=== PATIENT | male | born 1955 | race Caucasian/White ===

== ENCOUNTER 2019-05-11 11:03 | Emergency (ER) | payer OTHER ==
--- NOTE | 2019-05-11 11:55 | RAD ---
EXAM: Portable chest PROVIDED CLINICAL HISTORY: Syncope COMPARISON: None FINDINGS: Cardiac and mediastinal silhouette is within normal limits. No focal consolidation, pleural fluid or pneumothorax evident. IMPRESSION: No evidence for an acute cardiopulmonary process.
[2019-05-11 11:59] LABS: #Eosinphils 0.1 thou/uL (0.0-0.7); #Lymphocytes 0.8 thou/uL (1.20-3.40); #Monocytes 0.9 thou/uL (0.11-0.59); #Neutrophils 7.1 thou/uL (1.40-6.50); %Basophils 0.4 % (0.0-1.0); %Eosinophils 0.9 % (0.0-10.0); %Lymphocytes 8.9 % (21.0-51.0); %Neutrophils 79.9 % (42.0-75.0); Hemoglobin 15.5 g/dL (14.0-18.0); Mean Corpuscular HGB CONC 32.8 g/dL (32.0-36.0); Mean Corpuscular Hemoglobin 28.3 pg (27.0-31.0); Mean Corpuscular Volume 86.2 fL (78.0-98.0); Mean Platelet Volume 9.5 fL (7.4-10.4); Platelet Count 197 thou/uL (130-400); RBC Distribution Width 12.3 % (11.5-14.5); Red Blood Cell (RBC) Count 5.48 mill/uL (4.70-6.10); White Blood Cell (WBC) Count 8.9 thou/uL (4.8-10.8)
[2019-05-11 12:18] LABS: ALT (SGPT) 22 U/L (8-55); AST (SGOT) 15 U/L (5-34); Albumin 4.1 g/dL (3.4-4.8); Alkaline Phosphatase 83 U/L (40-150); Anion Gap 12 mmol/L (10-20); BUN (Urea Nitrogen) 12 mg/dL (8.4-25.7); Bilirubin, Total 0.8 mg/dL (0.2-1.2); Calc. Creatinine Clearance 0 mL/min (70-130); Calcium 9.1 mg/dL (7.8-10.44); Carbon Dioxide 23 mmol/L (23-31); Chloride 106 mmol/L (98-107); Estimated GFR-MDRD 75; Globulin 3.4 g/dL (2.4-3.5); Glucose 136 mg/dL (80-115); Potassium 4.3 mmol/L (3.5-5.1); Protein, Total 7.5 g/dL (5.8-8.1); Sodium 137 mmol/L (136-145)
--- NOTE | 2019-05-11 12:30 | CT ---
CT BRAIN WITHOUT CONTRAST: HISTORY: Syncope. COMPARISON: There are no previous exams for comparison. FINDINGS: There are irregular hypodensities in the right temporoparietal lobe, with associated coarse calcifica tions. There is minimal midline shift to the left. Ventricular size is appropriate. The basilar ci sterns are patent. No evidence of hemorrhage or abnormal extraaxial fluid collections seen. The bon y calvarium is intact. There is no mucosal disease in the paranasal sinuses. IMPRESSION: Findings suspicious for right-sided cerebral hemispheric mass. Further evaluation with contrast enhanced MRI is recommended. POS: [facility]
[2019-05-11] MEDS ORDERED: Iopamidol 370 76% 50 ML VIAL FS ONE (13:39)
[2019-05-11] MEDS ORDERED: ISOVUE-370 76%-LOCM 1 ML ONE (13:39)
[2019-05-11] MEDS ORDERED: Gadobenate Dimeglumine 529 MG/1 ML (20ML VIAL) ONE (13:42)
--- NOTE | 2019-05-11 14:26 | MRI ---
MRI Brain W WO Con: 05/11/2019 12:40 PM CLINICAL HISTORY: Syncope, CT abnormality, follow-up. COMPARISON: None. FINDINGS: Extra axial spaces: There is effacement of right cerebral hemispheric sulci within the right temporop arietal region. Acute infarction: None. Ventricular system: There is mild effacement of the right lateral ventricle as result of mass effect from the right cerebral hemisphere. Basal cisterns: There is effacement of the right ambient cistern. Cerebral parenchyma: Diffuse abnormal signal abnormality of the right cerebral hemisphere centered wi thin the right temporal lobe and extending to the inferior right frontal, and the right parietal lobes as well as medially to involve the deep hernandez nuclei including the lentiform nucleus and thalamu s. Encroachment upon the corpus callosum is also seen.. Associated susceptibility foci are present. Midline shift: Leftward shift subfalcine herniation, at level of septum pellucidum measures 7 mm. Cerebellum: Normal. Brainstem: Normal. Paranasal sinuses:Scattered mucosal thickening. Intraaxial Enhancement: No mass-producing intra-axial enhancement. There is interspersed vascular rel ated enhancement within the large region of signal alteration and edema of the right cerebral hemisphere. Associated vascular flow voids are present. IMPRESSION:Large, infiltrating mass of the right cerebral hemisphere without significant associated e nhancement. 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 Recommend neurosurgical consultation. Transcribed Date/Time: 05/11/2019 4:54 PM
[2019-05-11] MEDS ORDERED: Ketorolac Tromethamine 30 MG/ML VIAL ONE (14:42)
[2019-05-11] MEDS ORDERED: Dexamethasone 10 MG/ML VIAL ONE (14:57)
[2019-05-11] MEDS ORDERED: levETIRAcetam 500 MG/100 ML PREMIX BAG ONE (14:57)
--- NOTE | 2019-05-11 16:50 | CT ---
CT Chest Abd Pelvis W Con HISTORY: Syncopal episodes with fall. Pain. COMPARISON: None. FINDINGS: The lungs are clear of any infiltrative process. There is linear scar seen in the lung base s. No pleural effusions or pulmonary nodules. There is no significant mediastinal, hilar or axillary lymphadenopathy. CT of abdomen performed with contrast enhancement: There is suggestion of some fatty change of the li crow. The spleen is within normal limits. The pancreas and gallbladder regions are unremarkable. Right and left adrenal glands and right and left kidneys are normal in size. There is no significant periaortic or mesenteric adenopathy. No bowel wall abnormalities. CT of pelvis performed with contrast: The bladder is mildly distended the prostate is enlarged. There is no pelvic lymphadenopathy or mass. Review of osseous structures show some arthritic changes spine. IMPRESSION: 1. Fatty change of liver. 2. Linear scarring in the lung bases.
--- NOTE | 2019-05-12 16:53 | EKG ---
Test Reason : SYNCOPE Blood Pressure : / mmHG Vent. Rate : 091 BPM Atrial Rate : 091 BPM P-R Int : 154 ms QRS Dur : 072 ms QT Int : 348 ms P-R-T Axes : 063 033 064 degrees QTc Int : 428 ms Normal sinus rhythm with sinus arrhythmia Normal ECG Confirmed by SEVERIANO BROWN D.O. ([id number]), supervising editor news reel GEOFF KRISHNAN ([id number]) on 05/12/2019 4:53:31 PM Referred By: Confirmed By:SEVERIANO BROWN D.O.
== END 2019-05-11 19:51 | disposition short-term general hospital (02) ==
LOC: ERS 11:03 → EEVIPCON 11:03 → ERS 19:51
DX: C71.0 Malignant neoplasm of cerebrum, except lobes and ventricles (principal); E11.9 Type 2 diabetes mellitus without complications; G40.909 Epilepsy, unspecified, not intractable, without status epilepticus; Z79.84 Long term (current) use of oral hypoglycemic drugs; Z79.899 Other long term (current) drug therapy; Z79.82 Long term (current) use of aspirin
CPT/HCPCS: 36415; 70450; 70553; 71045; 71260; 74177; 80053; 84484; 85025; 93005; 96365; 96375; A9577; J1100; J1885; J1953; Q9966; Q9967